=== PATIENT | female | born 1955 | race Caucasian/White ===

== ENCOUNTER 2021-02-08 14:33 | Emergency (ER) | payer OTHER ==
[2021-02-08] MEDS ORDERED: HYDROCODON-ACE1 EAC4 PO (16:57)
== END 2021-02-08 17:00 | disposition home or self-care (01) ==
LOC: ER1 14:33
DX: S52.121A Displaced fracture of head of right radius, initial encounter for closed fracture (principal); W01.0XXA Fall on same level from slipping, tripping and stumbling without subsequent striking against object, initial encounter; Y92.009 Unspecified place in unspecified non-institutional (private) residence as the place of occurrence of the external cause
CPT/HCPCS: 73030; 73080; 73110; 99283